=== PATIENT | male | born 1955 | race Caucasian/White ===

== ENCOUNTER 2018-07-19 10:42 | Inpatient (IN) | payer MEDICAID, OTHER, SELFPAY ==
[~2018-07-19] VITALS: Ht 193 cm; Wt 160.3 kg
[2018-07-19] MEDS ORDERED: METHADONE 40 MG TABLET.SOL PO ONE (11:30)
[2018-07-19 11:48] LABS: BASOPHILS # (AUTO) 0.05 x10^3/uL (0-0.1); BASOPHILS % (AUTO) 0 % (0-1); EOSINOPHILS # (AUTO) 0.04 x10^3/uL (0-0.4); EOSINOPHILS % (AUTO) 0 % (1-7); LYMPHOCYTES # (AUTO) 1.99 x10^3/uL (1-3.4); LYMPHOCYTES % (AUTO) 17 % (22-44); MD NO; MEAN CORPUSCULAR HEMOGLOBIN 31.7 pg (27.5-34.5); MEAN CORPUSCULAR HGB CONC 32.7 g/dL (33.2-36.2); MEAN CORPUSCULAR VOLUME 96.8 fL (81-97); MEAN PLATELET VOLUME 8.4 fL (7.4-10.4); MONOCYTES # (AUTO) 0.94 x10^3/uL (0.2-0.8); MONOCYTES % (AUTO) 8 % (2-9); NEUTROPHILS % (AUTO) 74 % (42-75); PLATELET COUNT 212 x10^3/uL (130-400); RED BLOOD COUNT 4.86 x10^6/uL (4.38-5.82); RED CELL DISTRIBUTION WIDTH 15.3 % (9.4-14.8)
[2018-07-19 11:59] LABS: ALBUMIN 3.4 g/dL (3.4-5.0); ANION GAP 7 mmol/L (5-15); CALCIUM 8.3 mg/dL (8.5-10.1); CHLORIDE 102 mmol/L (98-107)
[2018-07-19 12:04] LABS: ALANINE AMINOTRANSFERASE 51 U/L (12-78); ALKALINE PHOSPHATASE 69 U/L (45-117); BILIRUBIN,TOTAL 0.5 mg/dL (0.2-1.0); CREATININE 1.28 mg/dL (0.7-1.3); TOTAL PROTEIN 8.5 g/dL (6.4-8.2)
[2018-07-19 12:35] LABS: TROPONIN I 0.409 ng/mL (0.000-0.045)
[2018-07-19] MEDS ORDERED: ASPIRIN 81 MG TABLET CHEW ONE (12:37)
[2018-07-19] MEDS ORDERED: ASPIRIN 81 MG TABLET CHEW PO ONE (13:30)
[2018-07-19] MEDS ORDERED: OMNIPAQUE 350 MG/ML, 100ML BOTTLE ONE (13:57)
[2018-07-19 14:00] VITALS: BP 110/68
[2018-07-19] MEDS ORDERED: ONDANSETRON 2MG/ML, 2ML IVPush PRN (14:00)
[2018-07-19] MEDS ORDERED: GUAIFENESIN/COD200MG-20MG/10ML LIQUID PO PRN (14:00)
[2018-07-19] MEDS: NICOTINE 7 MG/24 HR PATCH.TD24 TD SCH (14:00)
[2018-07-19] MEDS ORDERED: ACETAMINOPHEN 325 MG TABLET PO PRN (14:00)
[2018-07-19] MEDS ORDERED: HEPARIN 5,000 UNITS/ML, 1ML IV ONE (14:30)
[2018-07-19] MEDS: HEPARIN 25,000 UNITS/500ML PMX 500 ML IV PRN (14:30)
[2018-07-19] MEDS ORDERED: METH40TA3 PO (14:43)
[2018-07-19 15:18] VITALS: BP 112/73
[2018-07-19 15:50] LABS: MICROSCOPIC AUTO
[2018-07-19 15:56] LABS: CULTURE INDICATED? YES
[2018-07-19] MEDS: FUROSEMIDE 40 MG/4 ML IV SCH (18:36)
[2018-07-19 19:46] VITALS: BP 126/67
[2018-07-19 19:48] VITALS: BP 115/72
[2018-07-19 19:52] VITALS: BP 117/76
[2018-07-19] MEDS: ATORVASTATIN 40 MG TABLET PO SCH (20:21)
[2018-07-19] MEDS: HEPARIN 5,000 UNITS/ML, 1ML IV PRN (21:52)
[2018-07-20 00:05] VITALS: BP 118/72
[2018-07-20 00:45] LABS: TROPONIN I 0.141 ng/mL (0.000-0.045)
[2018-07-20] MEDS: OXYcodone IR 5MG TABLET PO PRN (04:55)
[2018-07-20 05:09] LABS: ANION GAP 6 mmol/L (5-15); CALCIUM 8.1 mg/dL (8.5-10.1); CHLORIDE 102 mmol/L (98-107); CREATININE 1.08 mg/dL (0.7-1.3); TRIGLYCERIDES 147 mg/dL (50-200); VLDL CHOLESTEROL 29 mg/dL (0-25)
[2018-07-20 05:19] LABS: CHOL/HDL RATIO 5.6; CHOLESTEROL, TOTAL 178 mg/dL (140-239); HDL CHOL % 18 % (26-37); HDL CHOLESTEROL (DIRECT) 32 mg/dL (40-60); LDL CHOLESTEROL,CALCULATED 117 mg/dL (54-169); LDL/HDL RATIO 3.7 (0.5-3.0)
[2018-07-20 05:28] LABS: BASOPHILS # (AUTO) 0.11 x10^3/uL (0-0.1); BASOPHILS % (AUTO) 1 % (0-1); EOSINOPHILS # (AUTO) 0.16 x10^3/uL (0-0.4); EOSINOPHILS % (AUTO) 2 % (1-7); LYMPHOCYTES # (AUTO) 2.35 x10^3/uL (1-3.4); LYMPHOCYTES % (AUTO) 26 % (22-44); MD NO; MEAN CORPUSCULAR HEMOGLOBIN 31.8 pg (27.5-34.5); MEAN CORPUSCULAR HGB CONC 33.3 g/dL (33.2-36.2); MEAN CORPUSCULAR VOLUME 95.7 fL (81-97); MEAN PLATELET VOLUME 9.1 fL (7.4-10.4); MONOCYTES # (AUTO) 0.57 x10^3/uL (0.2-0.8); MONOCYTES % (AUTO) 6 % (2-9); NEUTROPHILS # (AUTO) 5.88 x10^3/uL (1.8-6.8); NEUTROPHILS % (AUTO) 65 % (42-75); PLATELET COUNT 207 x10^3/uL (130-400); RED BLOOD COUNT 4.81 x10^6/uL (4.38-5.82); RED CELL DISTRIBUTION WIDTH 15.3 % (9.4-14.8)
[2018-07-20] MEDS: HEPARIN 5,000 UNITS/ML, 1ML IV PRN ×3 (05:34→19:59)
[2018-07-20] MEDS: ASPIRIN 81 MG TABLET EC PO SCH (05:34)
[2018-07-20 05:52] LABS: HEMOGLOBIN A1C 6.2 % (4.2-6.3)
[2018-07-20] MEDS ORDERED: ASPIRIN 325 MG TABLET EC PO SCH (06:00)
[2018-07-20 06:57] VITALS: BP 142/86
[2018-07-20] MEDS ORDERED: METHADONE 40 MG TABLET.SOL PO SCH (08:00)
[2018-07-20 08:32] VITALS: BP_SYST 138; BP_SYST 152; BP_DIAS 79; BP_DIAS 87
[2018-07-20 08:34] VITALS: BP 149/96
[2018-07-20] MEDS: FUROSEMIDE 40 MG/4 ML IV SCH ×2 (08:38→17:57)
[2018-07-20] MEDS: DOCUSATE 100 MG CAPSULE PO PRN (11:15)
[2018-07-20] MEDS: HEPARIN 25,000 UNITS/500ML PMX 500 ML IV PRN (13:08)
[2018-07-20 13:33] VITALS: BP 126/70
[2018-07-20] MEDS ORDERED: METHADONE INTENSOL 10 MG/ML ORAL CONC PO ONE (14:30)
[2018-07-20] MEDS: NICOTINE 7 MG/24 HR PATCH.TD24 TD SCH (14:56)
[2018-07-20 19:42] VITALS: BP 139/78
[2018-07-20] MEDS: ATORVASTATIN 40 MG TABLET PO SCH (19:44)
[2018-07-21 00:30] VITALS: BP 130/83
[2018-07-21 02:03] LABS: BASOPHILS # (AUTO) 0.05 x10^3/uL (0-0.1); BASOPHILS % (AUTO) 1 % (0-1); EOSINOPHILS # (AUTO) 0.14 x10^3/uL (0-0.4); EOSINOPHILS % (AUTO) 2 % (1-7); LYMPHOCYTES # (AUTO) 1.53 x10^3/uL (1-3.4); LYMPHOCYTES % (AUTO) 17 % (22-44); MD NO; MEAN CORPUSCULAR HGB CONC 33.3 g/dL (33.2-36.2); MEAN CORPUSCULAR VOLUME 96.2 fL (81-97); MEAN PLATELET VOLUME 8.5 fL (7.4-10.4); MONOCYTES # (AUTO) 0.56 x10^3/uL (0.2-0.8); MONOCYTES % (AUTO) 6 % (2-9); NEUTROPHILS # (AUTO) 6.73 x10^3/uL (1.8-6.8); NEUTROPHILS % (AUTO) 75 % (42-75); PLATELET COUNT 220 x10^3/uL (130-400); RED BLOOD COUNT 4.97 x10^6/uL (4.38-5.82); RED CELL DISTRIBUTION WIDTH 15.3 % (9.4-14.8)
[2018-07-21 02:14] LABS: CALCIUM 8.6 mg/dL (8.5-10.1); CREATININE 1.15 mg/dL (0.7-1.3)
[2018-07-21 02:45] LABS: ANION GAP 7 mmol/L (5-15); CHLORIDE 98 mmol/L (98-107)
[2018-07-21] MEDS: HEPARIN 25,000 UNITS/500ML PMX 500 ML IV PRN (03:12)
[2018-07-21] MEDS: HEPARIN 5,000 UNITS/ML, 1ML IV PRN ×2 (03:13→10:41)
[2018-07-21] MEDS: ASPIRIN 81 MG TABLET EC PO SCH (05:05)
[2018-07-21 07:27] VITALS: BP 164/91
[2018-07-21] MEDS: FUROSEMIDE 40 MG/4 ML IV SCH ×2 (07:49→17:18)
[2018-07-21] MEDS: OXYcodone IR 5MG TABLET PO PRN ×2 (07:49→21:20)
[2018-07-21] MEDS: DOCUSATE 100 MG CAPSULE PO PRN (07:49)
[2018-07-21] MEDS ORDERED: REGADENOSON 0.4 MG/5 ML SYRINGE ONE (08:29)
[2018-07-21] MEDS: METHADONE INTENSOL 10 MG/ML ORAL CONC PO SCH (08:42)
[2018-07-21 12:01] VITALS: BP 174/75
[2018-07-21] MEDS: NICOTINE 7 MG/24 HR PATCH.TD24 TD SCH (13:46)
[2018-07-21 16:06] VITALS: BP 161/69
[2018-07-21 17:23] VITALS: BP 145/88
[2018-07-21] MEDS: CEFTRIAXONE 1,000 MG in SODIUM CHLORIDE 0.9% 50 ML IV SCH (17:54)
[2018-07-21 20:09] VITALS: BP 130/77
[2018-07-21] MEDS: ATORVASTATIN 40 MG TABLET PO SCH (21:19)
[2018-07-21] MEDS: APIXABAN 5 MG TABLET PO SCH (21:20)
[2018-07-22 02:00] VITALS: BP 132/80
[2018-07-22 04:43] LABS: BASOPHILS # (AUTO) 0.08 x10^3/uL (0-0.1); BASOPHILS % (AUTO) 1 % (0-1); EOSINOPHILS # (AUTO) 0.17 x10^3/uL (0-0.4); EOSINOPHILS % (AUTO) 2 % (1-7); LYMPHOCYTES % (AUTO) 23 % (22-44); MD NO; MEAN CORPUSCULAR HEMOGLOBIN 31.3 pg (27.5-34.5); MEAN CORPUSCULAR HGB CONC 32.7 g/dL (33.2-36.2); MEAN CORPUSCULAR VOLUME 95.7 fL (81-97); MEAN PLATELET VOLUME 8.7 fL (7.4-10.4); MONOCYTES # (AUTO) 0.69 x10^3/uL (0.2-0.8); MONOCYTES % (AUTO) 8 % (2-9); NEUTROPHILS # (AUTO) 5.48 x10^3/uL (1.8-6.8); NEUTROPHILS % (AUTO) 66 % (42-75); PLATELET COUNT 235 x10^3/uL (130-400); RED BLOOD COUNT 5.01 x10^6/uL (4.38-5.82); RED CELL DISTRIBUTION WIDTH 15.1 % (9.4-14.8)
[2018-07-22 04:56] LABS: CALCIUM 8.6 mg/dL (8.5-10.1); CHLORIDE 98 mmol/L (98-107)
[2018-07-22 05:04] LABS: ANION GAP 6 mmol/L (5-15); CREATININE 1.26 mg/dL (0.7-1.3); FREE T4 (FREE THYROXINE) 0.92 ng/dL (0.76-1.46)
[2018-07-22] MEDS: ASPIRIN 81 MG TABLET EC PO SCH (05:28)
[2018-07-22 07:19] VITALS: BP 162/73
[2018-07-22] MEDS: APIXABAN 5 MG TABLET PO SCH ×2 (09:15→20:22)
[2018-07-22] MEDS: FUROSEMIDE 40 MG/4 ML IV SCH ×2 (09:15→17:32)
[2018-07-22] MEDS: METHADONE INTENSOL 10 MG/ML ORAL CONC PO SCH (09:15)
[2018-07-22] MEDS: DOCUSATE 100 MG CAPSULE PO PRN (09:34)
[2018-07-22] MEDS: SPIRONOLACTONE 25 MG TABLET PO SCH ×2 (10:39→20:21)
[2018-07-22 10:41] VITALS: BP 134/93
[2018-07-22] MEDS: NICOTINE 7 MG/24 HR PATCH.TD24 TD SCH (13:29)
[2018-07-22 13:41] VITALS: BP 136/85
[2018-07-22] MEDS: CEFTRIAXONE 1,000 MG in SODIUM CHLORIDE 0.9% 50 ML IV SCH (17:31)
[2018-07-22 18:48] VITALS: BP 125/88
[2018-07-22] MEDS: ATORVASTATIN 40 MG TABLET PO SCH (20:22)
[2018-07-22] MEDS: OXYcodone IR 5MG TABLET PO PRN (22:33)
[2018-07-23 00:40] VITALS: BP 125/74
[2018-07-23 05:14] LABS: BASOPHILS # (AUTO) 0.02 x10^3/uL (0-0.1); BASOPHILS % (AUTO) 0 % (0-1); EOSINOPHILS # (AUTO) 0.19 x10^3/uL (0-0.4); EOSINOPHILS % (AUTO) 2 % (1-7); LYMPHOCYTES # (AUTO) 1.73 x10^3/uL (1-3.4); LYMPHOCYTES % (AUTO) 19 % (22-44); MD NO; MEAN CORPUSCULAR HEMOGLOBIN 31.4 pg (27.5-34.5); MEAN CORPUSCULAR HGB CONC 32.7 g/dL (33.2-36.2); MEAN CORPUSCULAR VOLUME 96.1 fL (81-97); MEAN PLATELET VOLUME 8.6 fL (7.4-10.4); MONOCYTES # (AUTO) 0.49 x10^3/uL (0.2-0.8); MONOCYTES % (AUTO) 5 % (2-9); NEUTROPHILS # (AUTO) 6.57 x10^3/uL (1.8-6.8); NEUTROPHILS % (AUTO) 73 % (42-75); PLATELET COUNT 247 x10^3/uL (130-400); RED BLOOD COUNT 5.15 x10^6/uL (4.38-5.82); RED CELL DISTRIBUTION WIDTH 15.1 % (9.4-14.8)
[2018-07-23 05:23] LABS: ANION GAP 7 mmol/L (5-15); CALCIUM 9.1 mg/dL (8.5-10.1); CHLORIDE 98 mmol/L (98-107); CREATININE 1.62 mg/dL (0.7-1.3)
[2018-07-23] MEDS: ASPIRIN 81 MG TABLET EC PO SCH (06:31)
[2018-07-23 07:32] VITALS: BP 154/91
[2018-07-23] MEDS: APIXABAN 5 MG TABLET PO SCH ×2 (10:33→21:18)
[2018-07-23] MEDS: SPIRONOLACTONE 25 MG TABLET PO SCH ×2 (10:33→21:18)
[2018-07-23] MEDS: METHADONE INTENSOL 10 MG/ML ORAL CONC PO SCH (10:34)
[2018-07-23 13:18] VITALS: BP 124/79
[2018-07-23] MEDS: NICOTINE 7 MG/24 HR PATCH.TD24 TD SCH (15:40)
[2018-07-23] MEDS: CEFTRIAXONE 1,000 MG in SODIUM CHLORIDE 0.9% 50 ML IV SCH (17:42)
[2018-07-23 18:57] VITALS: BP 136/81
[2018-07-23] MEDS: OXYcodone IR 5MG TABLET PO PRN (21:17)
[2018-07-23] MEDS: ATORVASTATIN 40 MG TABLET PO SCH (21:18)
[2018-07-24 00:26] VITALS: BP 121/67
[2018-07-24 04:32] LABS: BASOPHILS # (AUTO) 0.09 x10^3/uL (0-0.1); BASOPHILS % (AUTO) 1 % (0-1); EOSINOPHILS # (AUTO) 0.24 x10^3/uL (0-0.4); EOSINOPHILS % (AUTO) 2 % (1-7); LYMPHOCYTES # (AUTO) 2.11 x10^3/uL (1-3.4); LYMPHOCYTES % (AUTO) 21 % (22-44); MD NO; MEAN CORPUSCULAR HEMOGLOBIN 31.1 pg (27.5-34.5); MEAN CORPUSCULAR HGB CONC 32.4 g/dL (33.2-36.2); MEAN CORPUSCULAR VOLUME 95.8 fL (81-97); MEAN PLATELET VOLUME 8.4 fL (7.4-10.4); MONOCYTES # (AUTO) 0.58 x10^3/uL (0.2-0.8); MONOCYTES % (AUTO) 6 % (2-9); NEUTROPHILS # (AUTO) 7.15 x10^3/uL (1.8-6.8); NEUTROPHILS % (AUTO) 70 % (42-75); PLATELET COUNT 240 x10^3/uL (130-400); RED BLOOD COUNT 4.94 x10^6/uL (4.38-5.82); RED CELL DISTRIBUTION WIDTH 15.2 % (9.4-14.8)
[2018-07-24 04:48] LABS: ALANINE AMINOTRANSFERASE 39 U/L (12-78); ALBUMIN 3.3 g/dL (3.4-5.0); ANION GAP 8 mmol/L (5-15); CALCIUM 8.8 mg/dL (8.5-10.1); CHLORIDE 100 mmol/L (98-107); CREATININE 1.34 mg/dL (0.7-1.3)
[2018-07-24 04:50] LABS: ALKALINE PHOSPHATASE 57 U/L (45-117); BILIRUBIN,TOTAL 0.2 mg/dL (0.2-1.0); TOTAL PROTEIN 8.4 g/dL (6.4-8.2)
[2018-07-24] MEDS: ASPIRIN 81 MG TABLET EC PO SCH (05:41)
[2018-07-24 06:40] VITALS: BP 126/74
[2018-07-24] MEDS: SPIRONOLACTONE 25 MG TABLET PO SCH (10:05)
[2018-07-24] MEDS: METHADONE INTENSOL 10 MG/ML ORAL CONC PO SCH (10:05)
[2018-07-24] MEDS: APIXABAN 5 MG TABLET PO SCH (10:05)
[2018-07-24] MEDS ORDERED: NICO-485 TD (10:44)
[2018-07-24] MEDS ORDERED: SPIR25TA PO (10:44)
[2018-07-24] MEDS ORDERED: APIX5TAB PO (10:44)
[2018-07-24] MEDS ORDERED: ATOR40TA78 PO (10:44)
[2018-07-24] MEDS ORDERED: ASPI-621 PO (10:44)
[2018-07-28] MEDS ORDERED: APIXABAN 5 MG TABLET PO SCH (21:00)
== END 2018-07-24 11:59 | disposition home or self-care (01) | DRG 291 ==
LOC: ED 12:35 → EDIP 12:52 → 5SO 13:54 → DCLOUNGE 07-24 11:35
PROVIDERS: ADMIT Internal Medicine; ATTEND Internal Medicine
DX: I50.9 Heart failure, unspecified (principal); J96.21 Acute and chronic respiratory failure with hypoxia; I27.82 Chronic pulmonary embolism; I82.501 Chronic embolism and thrombosis of unspecified deep veins of right lower extremity; F11.20 Opioid dependence, uncomplicated; N17.9 Acute kidney failure, unspecified; Z68.41 Body mass index [BMI] 40.0-44.9, adult; E66.01 Morbid (severe) obesity due to excess calories; F17.210 Nicotine dependence, cigarettes, uncomplicated; G89.29 Other chronic pain; I87.2 Venous insufficiency (chronic) (peripheral); I87.8 Other specified disorders of veins; J44.9 Chronic obstructive pulmonary disease, unspecified; K42.9 Umbilical hernia without obstruction or gangrene; L30.9 Dermatitis, unspecified; N14.1 Nephropathy induced by other drugs, medicaments and biological substances; T50.2X5A Adverse effect of carbonic-anhydrase inhibitors, benzothiadiazides and other diuretics, initial encounter; Y92.89 Other specified places as the place of occurrence of the external cause; Z91.19 Patient's noncompliance with other medical treatment and regimen; Z79.891 Long term (current) use of opiate analgesic; Z99.81 Dependence on supplemental oxygen; R73.9 Hyperglycemia, unspecified
CPT/HCPCS: 36415; 71045; 71275; 74021; 78452; 80048; 80053; 80061; 81001; 83036; 83735; 83880; 84100; 84439; 84443; 84484; 85025; 85520; 87077; 87086; 87186; 93005; 93017; 93306; 93970; 99285; G0378; J0696; J1644; J1940; J2785; Q9967; A9502; C9898